=== PATIENT | male | born 1970 | race Hispanic/Latino ===

== ENCOUNTER 2024-03-23 10:14 | Observation (INO) | payer BC ==
[~2024-03-23] VITALS: Ht 170.2 cm; Wt 73.9 kg
[~2024-03-23 10:14] MED LIST: ACET1TAB12 PO; ATOR10TA69 PO; GLIP10TA9 PO; P-EP-94 PO
[2024-03-23 10:38] LABS: BASOPHILS # (AUTO) 0.06 K/uL (0.00-0.20); BASOPHILS % (AUTO) 0.8 % (0.0-5.0); EOSINOPHILS # (AUTO) 0.16 K/uL (0.00-0.70); EOSINOPHILS % (AUTO) 2.2 % (0.0-8.0); HEMATOCRIT 41.4 % (42-54); IMMATURE GRANULOCYTE ABSOLUTE 0.02 K/uL (0-1); LYMPHOCYTES # (AUTO) 1.5 K/uL (1.0-4.8); LYMPHOCYTES % (AUTO) 20.6 % (21.0-51.0); MEAN CORPUSCULAR HEMOGLOBIN 31.9 pg (27.0-33.0); MEAN CORPUSCULAR HGB CONC 35.3 g/dL (32.0-36.0); MEAN CORPUSCULAR VOLUME 90.4 fL (79-99); MONOCYTES # (AUTO) 0.9 K/uL (0.1-1.0); MONOCYTES % (AUTO) 11.9 % (3.0-13.0); NEUTROPHILS # (AUTO) 4.6 K/uL (1.8-7.7); NEUTROPHILS % (AUTO) 64.2 % (40.0-77.0); PLATELET COUNT (AUTO) 141 K/uL (130-400); RED BLOOD CELL COUNT(AUTO) 4.58 MIL/uL (4.50-6.20); RED CELL DISTRIBUTION WIDTH 11.4 % (11.0-15.5); WHITE BLOOD COUNT (AUTO) 7.1 K/uL (4.8-10.8)
[2024-03-23] MEDS: ONDANSETRON 4MG INJ IVP ONE (10:41)
[2024-03-23] MEDS: FAMOTIDINE 20MG TAB PO ONE (10:41)
[2024-03-23] MEDS: MAG/ALUM/SIMETH 30 ML UDCUP PO ONE (10:41)
[2024-03-23] MEDS: LIDOCAINE HCL 2% VISCOUS 15 ML UDCUP PO ONE (10:41)
[2024-03-23] MEDS: DICYCLOMINE HCL 10 MG/5 ML ML PO ONE (10:41)
[2024-03-23 10:47] LABS: CREATININE 0.9 mg/dL (0.5-1.3); POTASSIUM 4.1 mmol/L (3.5-5.1)
[2024-03-23 10:53] LABS: ALBUMIN 3.9 g/dL (3.5-5.0); BILIRUBIN,TOTAL 0.9 mg/dL (0.2-1.0); TOTAL PROTEIN, SERUM 7.2 g/dL (6.0-8.3)
[2024-03-23 10:57] LABS: APPEARANCE,URINE CLEAR (CLEAR); BILIRUBIN,URINE NEGATIVE (NEGATIVE); COLOR,URINE YELLOW (YELLOW); GLUCOSE, URINE (UA) >=1000 mg/dL (NEGATIVE); KETONES,URINE NEGATIVE (NEGATIVE); LEUKOCYTE ESTERASE ,URINE NEGATIVE Leu/uL (NEGATIVE); NITRATE,URINE NEGATIVE (NEGATIVE); OCCULT BLOOD,URINE NEGATIVE (NEGATIVE); PROTEIN,URINE NEGATIVE (NEGATIVE); UROBILINOGEN,URINE 0.2 mg/dL (0.2-1.0)
[2024-03-23 10:59] LABS: ADD UA MICROSCOPIC YES
[2024-03-23 11:27] LABS: WBC,URINE 0-1 /HPF (0-1)
[2024-03-23] MEDS ORDERED: ZOLPIDEM TARTRATE 5 MG TAB PO PRN (12:00)
[2024-03-23] MEDS ORDERED: HYDRALAZINE 20MG/ML VIAL IV PRN (12:00)
[2024-03-23] MEDS ORDERED: ACETAMINOPHEN 325 MG TAB PO PRN ×2 (12:00)
[2024-03-23] MEDS ORDERED: ONDANSETRON 4MG INJ IV PRN (12:00)
[2024-03-23] MEDS ORDERED: GLUCAGON 1MG KIT 1 MG ML IM PRN (12:00)
[2024-03-23] MEDS ORDERED: MAG/ALUM/SIMETH 30 ML UDCUP PO PRN (12:00)
[2024-03-23] MEDS ORDERED: LACTULOSE 20 GM/30 ML UDCUP PO PRN (12:00)
[2024-03-23] MEDS ORDERED: GUAIFENESIN-DM 200/20 MG 10 ML PO PRN (12:00)
[2024-03-23] MEDS ORDERED: KCL 20 MEQ ERTAB PO PRN (12:00)
[2024-03-23] MEDS ORDERED: POTASSIUM CHLORIDE 10MEQ/100ML 100 ML IV PRN (12:00)
[2024-03-23] MEDS ORDERED: KETOROLAC 15MG/ML VIAL (15MG/ML) IV PRN (12:00)
[2024-03-23] MEDS ORDERED: POTASSIUM CHLORIDE 10% ELIXIR 20 MEQ/15 ML UDCUP PO PRN (12:00)
[2024-03-23] MEDS ORDERED: DiphenhydrAMINE HCL 50 MG/ML VIAL IV PRN (12:00)
[2024-03-23] MEDS ORDERED: OXYCODONE/ACETAMIN 5/325MG TAB PO PRN (12:00)
[2024-03-23] MEDS ORDERED: DEXTROSE 50%-WATER 50 ML DISP.SYRIN IV PRN (12:00)
[2024-03-23] MEDS ORDERED: NITROGLYCERIN 0.4 MG SL TAB SL PRN (12:00)
[2024-03-23] MEDS ORDERED: FAMOTIDINE 20MG VIAL IV PRN (12:00)
[2024-03-23] MEDS: MORPHINE 4 MG SYG IVP ONE (12:05)
[2024-03-23] MEDS: ASPIRIN 81MG CHEW TAB PO ONE (12:05)
[2024-03-23] MEDS: 0.9%NACL 1000ML 1,000 ML IV SCH (12:07)
[2024-03-23] MEDS ORDERED: POTASSIUM CHLORIDE 10MEQ SR TAB PO PRN (12:30)
[2024-03-23] MEDS: INSULIN HUMULIN R 100 UNIT/ML 3ML SQ SCH (17:38)
[2024-03-23] MEDS ORDERED: METFORMIN PO (19:20)
[2024-03-23] MEDS ORDERED: JANUVIA (19:20)
[2024-03-23] MEDS ORDERED: ATORVASTATIN (19:21)
[2024-03-23] MEDS ORDERED: ISOSORBIDE (19:21)
[2024-03-23] MEDS: HEPARIN 5,000 UNIT VIAL SQ SCH (21:32)
[2024-03-23] MEDS: FAMOTIDINE 20MG VIAL IV SCH (21:32)
[2024-03-24] VITALS (17 sets, daily range): BP systolic 109–143; BP diastolic 69–108; PULSE 72–87; RESP 13–25; O2SAT 96–99
[2024-03-24] MEDS: ACETAMINOPHEN 325 MG TAB PO PRN (03:51)
[2024-03-24] MEDS ORDERED: ATOR40TA71 PO (07:35)
[2024-03-24] MEDS ORDERED: SITA100T12 PO (07:35)
[2024-03-24] MEDS ORDERED: ISOS30TA92 PO (07:35)
[2024-03-24] MEDS ORDERED: MULT-1259 PO (07:35)
[2024-03-24] MEDS ORDERED: METF-445 PO (07:35)
[2024-03-24 07:37] LABS: BASOPHILS # (AUTO) 0.05 K/uL (0.00-0.20); BASOPHILS % (AUTO) 0.9 % (0.0-5.0); EOSINOPHILS # (AUTO) 0.18 K/uL (0.00-0.70); EOSINOPHILS % (AUTO) 3.2 % (0.0-8.0); HEMATOCRIT 40.5 % (42-54); IMMATURE GRANULOCYTE ABSOLUTE 0.02 K/uL (0-1); LYMPHOCYTES # (AUTO) 1.1 K/uL (1.0-4.8); LYMPHOCYTES % (AUTO) 18.9 % (21.0-51.0); MEAN CORPUSCULAR HGB CONC 35.3 g/dL (32.0-36.0); MEAN CORPUSCULAR VOLUME 90.6 fL (79-99); MONOCYTES # (AUTO) 0.5 K/uL (0.1-1.0); NEUTROPHILS # (AUTO) 3.8 K/uL (1.8-7.7); NEUTROPHILS % (AUTO) 67.6 % (40.0-77.0); PLATELET COUNT (AUTO) 136 K/uL (130-400); RED BLOOD CELL COUNT(AUTO) 4.47 MIL/uL (4.50-6.20); RED CELL DISTRIBUTION WIDTH 11.4 % (11.0-15.5); WHITE BLOOD COUNT (AUTO) 5.6 K/uL (4.8-10.8)
[2024-03-24 07:46] LABS: HEMOGLOBIN A1C 11.4 % (4.0-6.0)
[2024-03-24 07:57] LABS: ALANINE AMINOTRANSFERASE 53 U/L (12-78); ALBUMIN 3.7 g/dL (3.5-5.0); AMMONIA < 10 umol/L (11-32); ASPARTATE AMINOTRANSFERASE 31 U/L (10-37); BILIRUBIN,DIRECT 0.2 mg/dL (0.0-0.3); CARBON DIOXIDE 29 mmol/L (21-32); CHLORIDE 101 mmol/L (101-111); CREATINE KINASE, TOTAL 55 U/L (21-232); CREATININE 0.8 mg/dL (0.5-1.3); GLOMERULAR FILTR. RATE CALC 105 mL/min (>90); GLUCOSE,RANDOM 221 mg/dL (70-105); POTASSIUM 4.4 mmol/L (3.5-5.1); SODIUM SERUM 137 mmol/L (136-145); TOTAL PROTEIN, SERUM 6.5 g/dL (6.0-8.3); UREA NITROGEN, BLOOD 12 mg/dL (7-18)
[2024-03-24] MEDS ORDERED: GLUCAGON 1MG KIT 1 MG ML IM PRN (13:00)
[2024-03-24] MEDS ORDERED: DEXTROSE 50%-WATER 50 ML DISP.SYRIN IV PRN (13:00)
[2024-03-24] MEDS ORDERED: INSULIN HUMULIN R 100 UNIT/ML 3ML SQ SCH (16:30)
[2024-03-24] MEDS: LIDOCAINE 5% TOPICAL PATCH TP ONE (19:47)
[2024-03-24] MEDS: MAGNESIUM 2GM PREMIX 50ML 50 ML IV PRN (19:48)
[2024-03-24] MEDS: METOPROLOL TARTRATE 25 MG TAB PO SCH (21:55)
[2024-03-25] VITALS: BP 128/81; PULSE 71; RESP 16
[2024-03-25] MEDS ORDERED: KETOROLAC 15MG/ML VIAL (15MG/ML) IV PRN (00:30)
[2024-03-25 04:00] VITALS: BP 135/72; PULSE 77; RESP 16
[2024-03-25 07:00] VITALS: BP 118/81; PULSE 79; RESP 18; O2SAT 96
[2024-03-25] MEDS ORDERED: LIDO1ADH71 TP (07:04)
[2024-03-25] MEDS: LIDOCAINE 5% TOPICAL PATCH TP SCH (07:39)
== END 2024-03-25 09:15 | disposition home or self-care (01) ==
LOC: EDH 10:14 → EDHIP 11:55 → 2CH 03-24 06:49
PROVIDERS: ADMIT Hospitalist; ATTEND Hospitalist
DX: R07.89 Other chest pain (principal); E11.65 Type 2 diabetes mellitus with hyperglycemia; E11.649 Type 2 diabetes mellitus with hypoglycemia without coma; I25.10 Atherosclerotic heart disease of native coronary artery without angina pectoris; I10 Essential (primary) hypertension; E78.5 Hyperlipidemia, unspecified; Z91.148 Patient's other noncompliance with medication regimen for other reason; Z79.899 Other long term (current) drug therapy
CPT/HCPCS: 96372 ×3; 96361 ×2; 96375; 99285; 84484 ×3; 80053; 83690; 85025 ×2; 82948 ×5; 81001; 36415 ×2; 71045; 74176; 93005 ×2; 96376 ×2; 96365; 96366; 83036; 82550; 80076; 83735; 80048; 83880; 82140; 83605; 93306; 93356; 97161; 97116; 84145; G0378 ×43; J3490 ×4; J7030; J2405; J2270; J1644 ×3; J1815 ×6; J3475

== ENCOUNTER → 2025-07-14 | Outpatient (CLI) | payer BC ==
[~2025-07-14] MED LIST changes: -ACET1TAB12 PO; -ATOR10TA69 PO; +ATOR40TA71 PO; -GLIP10TA9 PO; +ISOS30TA92 PO; +LIDO1ADH71 TP; +METF-445 PO; +MULT-1259 PO; -P-EP-94 PO; +SITA100T12 PO
--- NOTE | 2025-07-15 13:00 | HMCIMG ---
EXAM: CT Abdomen and Pelvis Without IV contrast CLINICAL HISTORY: Lower abdominal pain, unspecified TECHNIQUE: Axial computed tomography images of the abdomen and pelvis without intravenous contrast. CONTRAST: No IV contrast. COMPARISON: None provided. FINDINGS: LUNG BASES: The lung bases appear clear. No pleural effusions are seen. LIVER: Unremarkable. GALLBLADDER AND BILE DUCTS: No biliary ductal dilatation is evident. Post cholecystectomy status. PANCREAS: Unremarkable. SPLEEN: Unremarkable. ADRENAL GLANDS: Unremarkable. KIDNEYS, URETERS, AND BLADDER: The right kidney appears within normal limits. There is no hydronephrosis or hydroureter. Tiny calculus in the left kidney, measuring approximately 2.2 mm STOMACH AND BOWEL: Unremarkable appearance of the stomach. No evidence of bowel obstruction. No evidence suggesting enteritis or colitis. Colonic diverticulosis, predominantly in the sigmoid colon. APPENDIX: Normal appendix. PERITONEUM: No free fluid. No free air. Bilateral small inguinal herniia with herniation of peritoneal fat. LYMPH NODES: No lymphadenopathy is evident. REPRODUCTIVE: Mildly enlarged prostate gland, measures approximately 3.7 x 5 cm VASCULATURE: No evidence of abdominal aortic aneurysm. BONES: No aggressive appearing osseous lesion. No acute osseous pathology evident. Degenerative changes in the spine IMPRESSION: 1. No acute intraabdominal or pelvic pathology. /[place]
== END | disposition home or self-care (01) ==
LOC: RAH 09:26
PROVIDERS: ATTEND Family Medicine
DX: K40.20 Bilateral inguinal hernia, without obstruction or gangrene, not specified as recurrent (principal); K57.30 Diverticulosis of large intestine without perforation or abscess without bleeding; N40.0 Benign prostatic hyperplasia without lower urinary tract symptoms; N20.0 Calculus of kidney; M47.817 Spondylosis without myelopathy or radiculopathy, lumbosacral region; R10.30 Lower abdominal pain, unspecified; Z90.49 Acquired absence of other specified parts of digestive tract
CPT/HCPCS: 74176